=== PATIENT | male | born 1990 | race Caucasian/White ===

== ENCOUNTER 2023-11-25 20:27 | Emergency (ER) | payer SELFPAY ==
[~2023-11-25] VITALS: Ht 170.2 cm; Wt 78.0 kg
[2023-11-25 20:34] VITALS: TEMP 98.3; O2SAT 98
[2023-11-25] MEDS ORDERED: IBUPROFEN 800MG TABLET PO ONE (23:00)
[2023-11-25 23:46] VITALS: BP 130/85; PULSE 110; RESP 18
[2023-11-25] MEDS: IBUPROFEN 400MG TABLET PO NR (23:46)
[2023-11-26] MEDS ORDERED: IBUP-2030 MT (00:38)
== END 2023-11-26 00:59 | disposition home or self-care (01) ==
LOC: ER 20:27
DX: M54.9 Dorsalgia, unspecified (principal); J45.909 Unspecified asthma, uncomplicated; V49.59XA Passenger injured in collision with other motor vehicles in traffic accident, initial encounter; Y93.89 Activity, other specified; Y92.89 Other specified places as the place of occurrence of the external cause; Y99.8 Other external cause status
CPT/HCPCS: 72100; 99283